=== PATIENT | male | born 1965 | race African-American/Black ===

== ENCOUNTER 2017-01-07 07:16 | Emergency (ER) | payer SELFPAY ==
[~2017-01-07] VITALS: Ht 170.2 cm; Wt 60.0 kg
[2017-01-07 07:18] VITALS: BP 117/76; PULSE 69; TEMP 98; O2SAT 100
--- NOTE | 2017-01-07 08:02 | PD ---
HPI Chief Complaint: Skin Problem Time Seen by Provider: 08:02 Travel History International Travel<30 days: No Contact w/Intl Traveler<30days: No Traveled to known affect area: No History of Present Illness HPI 51-year-old male presents to the emergency Department requesting tetanus vaccination after stepping on a nail yesterday. He does not know when his tetanus was last updated. Denies fever, chills, nausea, vomiting. Denies paresthesias, loss of sensation to the affected extremity. Denies erythema, edema, drainage from the wound site. Clean area after stepping on a nail. Allergies to azithromycin and procaine. No other modifying factors or associated signs and symptoms. PFSH Social History Tobacco Use: No Allergies-Medications (Allergen,Severity, Reaction): Coded Allergies: Azithromycin (Verified Allergy, Intermediate, affects vision, 01/07/17) Procaine (Verified Allergy, Intermediate, affects vision, 01/07/17) Review of Systems Except as stated in HPI: all other systems reviewed are Neg Physical Exam Narrative GENERAL: Well-nourished, well-developed male patient, in no acute distress SKIN: Warm and dry. Puncture wound noted to the bottom of right foot; the areas without erythema, edema, drainage. No signs of infection. HEAD: Atraumatic. Normocephalic. EYES: Pupils equal and round. No scleral icterus. No injection or drainage. ENT: Mucosa pink and moist. Airway patent. NECK: Trachea midline. CARDIOVASCULAR: Regular rate. RESPIRATORY: No accessory muscle use. GASTROINTESTINAL: Flat. MUSCULOSKELETAL: No obvious deformities. No clubbing. No cyanosis. No edema. NEUROLOGICAL: Awake and alert. Oriented 3. No obvious cranial nerve deficits. Motor grossly within normal limits. Normal speech. PSYCHIATRIC: Appropriate mood and affect; insight and judgment normal. Data Data Last Documented VS Vital Signs Date Time Temp Pulse Resp B/P Pulse Ox O2 Delivery O2 Flow Rate FiO2 01/07/17 07:18 98.0 69 117/76 100 Orders Tetanus/Diphtheria Tox Adult (Tetanus/Di (01/07/17 08:15) MDM Medical Decision Making Medical Screen Exam Complete: Yes Emergency Medical Condition: Yes Medical Record Reviewed: Yes Differential Diagnosis Puncture wound, tetanus update, medical clearance Narrative Course 51-year-old male needing tetanus update after stepping on a nail yesterday. Tetanus updated in the ER. Patient verbalizes understanding and agreement with treatment plan. Patient is medically cleared and stable for discharge. Discussed reasons to return to the emergency department. Instructed patient to follow up with primary care provider. Patient agrees with treatment plan. The patients vital signs are stable and the patient is stable for outpatient follow- up and treatment. Patient discharged home, stable and in no acute distress. Diagnosis Primary Impression: Puncture wound of right foot Qualified Code: S91.331A - Puncture wound of right foot, initial encounter Referrals: Primary Care Physician Patient Instructions: General Instructions, Puncture Wound (ED) Additional Instructions: Ibuprofen or Tylenol as directed and as needed for pain and inflammation Keep affected area clean and dry Follow-up with primary care provider Return to the emergency department immediately with worsening of symptoms Med/Other Pt SpecificInfo: No Meds Exist/No RX given Disposition: 01 DISCHARGE HOME Condition: Stable Rita Gardiner Jan 07, 2017 08:02
[2017-01-07] MEDS ORDERED: TETANUS/DIPHTHERIA TOXOID ADULT 0.5 ML VIAL IM ONE (08:15)
== END 2017-01-07 08:25 | disposition home or self-care (01) ==
LOC: NEPK 07:16
DX: S91.331A Puncture wound without foreign body, right foot, initial encounter (principal); W45.0XXA Nail entering through skin, initial encounter; Z23 Encounter for immunization
CPT/HCPCS: 90471; 90714